=== PATIENT | female | born 1950 | race Two or more races ===

== ENCOUNTER 2016-12-15 21:05 | Emergency (ER) | payer OTHER ==
[2016-12-15 21:19] VITALS: BP 141/92; PULSE 71; TEMP 97.7; BMI 27.6
--- NOTE | 2016-12-15 22:01 | PDOC ---
History of Present Illness <Heidi Page - Last Filed: 12/16/16 02:26> - General History Source: Patient Exam Limitations: No Limitations - History of Present Illness Travel History: No Initial Comments: 12/15/16 21:59 66-year-old female with a history of hypertension, NIDDM presents to the emergency department complaining of right-sided flank pain since this am. Pain is described as 5/10 dull nonradiating intermittent discomfort. The pain is exacerbated on touch and alleviated at rest. Patient denies fever, chills, nausea/vomiting, dizziness, lightheadedness, neck pains, chest pain, shortness of breath, abdominal pains, urinary symptoms: Frequency/urgency/hesitancy, hematuria. Timing/Duration: reports: intermittent Quality: reports: mild Abdominal Pain Onset Location: reports: flank (right) Pain Radiation: reports: no radiation <Chiara Yancey - Last Filed: 12/16/16 02:42> - General Chief Complaint: Pain Stated Complaint: RIGHT LOWER QUADRANT PAIN Time Seen by Provider: 12/15/16 21:34 Past History <Heidi Page - Last Filed: 12/16/16 02:26> - Past Medical History Diabetes: Yes HTN: Yes - Psycho/Social/Smoking Cessation Hx Suicidal Ideation: No Smoking History: Never smoked Information on smoking cessation initiated: No Hx Alcohol Use: No Drug/Substance Use Hx: No Substance Use Type: None <Chiara Yancey - Last Filed: 12/16/16 02:42> - Past Medical History Allergies/Adverse Reactions: Allergies Allergy/AdvReac Type Severity Reaction Status Date / Time No Known Allergies Allergy Verified 12/15/16 21:16 Home Medications: Ambulatory Orders Glipizide 10 mg PO DAILY 12/15/16 Lisinopril 5 mg PO DAILY 12/15/16 Sitagliptin Phosphate [Januvia] 100 mg PO DAILY 12/15/16 Review of Systems - Review of Systems Able to Perform ROS?: Yes Comments:: 12/15/16 22:00 CONSTITUTIONAL: Absent: fever, chills, diaphoresis, generalized weakness, malaise, loss of appetite HEENT: Absent: rhinorrhea, nasal congestion, throat pain, throat swelling, difficulty swallowing, mouth swelling, ear pain, eye pain, visual Changes CARDIOVASCULAR: Absent: chest pain, loss of consciousness, palpitations, irregular heart rate, peripheral edema RESPIRATORY: Absent: cough, shortness of breath, dyspnea with exertion, orthopnea, wheezing, stridor, hemoptysis GASTROINTESTINAL: Absent: abdominal pain, abdominal distension, nausea, vomiting, diarrhea, constipation, melena, hematochezia GENITOURINARY: +flank pain Absent: dysuria, frequency, urgency, hesitancy, hematuria, genital pain MUSCULOSKELETAL: Absent: myalgia, arthralgia, joint swelling SKIN: Absent: rash, itching, pallor HEMATOLOGIC/IMMUNOLOGIC: Absent: easy bleeding, easy bruising, lymphadenopathy, frequent infections ENDOCRINE: Absent: unexplained weight gain, unexplained weight loss, heat intolerance, cold intolerance NEUROLOGIC: Absent: headache, focal weakness or paresthesias, dizziness, unsteady gait, seizure, mental status changes, bladder or bowel incontinence PSYCHIATRIC: Absent: anxiety, depression, suicidal or homicidal ideation, hallucinations. Is the patient limited Finnish proficient: No <Chiara Yancey - Last Filed: 12/16/16 02:42> *Physical Exam - Vital Signs Last Vital Signs Temp Pulse Resp BP Pulse Ox 97.7 F 71 19 141/92 100 12/15/16 21:17 12/15/16 21:17 12/15/16 21:17 12/15/16 21:17 12/15/16 21:17 <Heidi Page - Last Filed: 12/16/16 02:26> - Vital Signs Last Vital Signs Temp Pulse Resp BP Pulse Ox 97.7 F 71 19 141/92 100 12/15/16 21:17 12/15/16 21:17 12/15/16 21:17 12/15/16 21:17 12/15/16 21:17 - Physical Exam Comments: 12/15/16 22:00 GENERAL: Well developed, well nourished. Awake and alert. No acute distress. HEENT: Normocephalic, atraumatic. PERRLA, EOMI. No conjunctival pallor. Sclera are non- icteric. Moist mucous membranes. Oropharynx is clear. NECK: Supple. Full ROM. No JVD. Carotid pulses 2+ and symmetric, without bruits. No thyromegaly. No lymphadenopathy. CARDIOVASCULAR: Regular rate and rhythm. No murmurs, rubs, or gallops. Distal pulses are 2+ and symmetric. PULMONARY: No evidence of respiratory distress. Lungs clear to auscultation bilaterally. No wheezing, rales or rhonchi. ABDOMINAL: Right CVAT Soft. Non-tender. Non-distended. No rebound or guarding. No organomegaly. Normoactive bowel sounds. MUSCULOSKELETAL Normal range of motion at all joints. No bony deformities or tenderness. EXTREMITIES: No cyanosis. No clubbing. No edema. No calf tenderness. SKIN: Warm and dry. Normal capillary refill. No rashes. No jaundice. NEUROLOGICAL: Alert, awake, appropriate. Cranial nerves 2-12 intact. No deficits to light touch and temperature in face, upper extremities and lower extremities. No motor deficits in the in face, upper extremities and lower extremities. Normoreflexic in the upper and lower extremities. Normal speech. Toes are down- going bilaterally. Gait is normal without ataxia. PSYCHIATRIC: Cooperative. Good eye contact. Appropriate mood and affect. <Chiara Yancey - Last Filed: 12/16/16 02:42> ED Treatment Course - LABORATORY CBC & Chemistry Diagram: 12/15/16 22:10 12/15/16 22:10 - ADDITIONAL ORDERS Additional order review: Laboratory Results 12/15/16 12/15/16 22:10 22:10 Sodium 142 Potassium 4.0 Chloride 109 H Carbon Dioxide 25 Anion Gap 8 BUN 12 Creatinine 0.9 Creat Clearance w eGFR > 60 Random Glucose 174 H Calcium 9.9 Total Bilirubin 0.3 AST 17 ALT 29 Alkaline Phosphatase 71 Total Protein 6.7 Albumin 3.6 Urine Color Yellow Urine Appearance Clear Urine pH 5.0 Urine Protein Negative Urine Glucose (UA) Negative Urine Ketones 1+ H Urine Blood Negative Urine Nitrite Negative Urine Bilirubin Negative Urine Urobilinogen Negative Ur Leukocyte Esterase 1+ H Urine RBC 1 Urine WBC 3 Ur Epithelial Cells Rare Urine Mucus Rare 12/15/16 22:10 RBC 4.55 MCV 85.8 MCHC 33.3 RDW 13.6 MPV 8.8 Neutrophils % 60.0 Lymphocytes % 29.5 Monocytes % 7.8 Eosinophils % 2.2 Basophils % 0.5 - Medications Given in the ED: ED Medications Discontinued Medications Generic Name Dose Route Start Last Admin Trade Name Freq PRN Reason Stop Dose Admin Sodium Chloride 1,000 mls @ 1,000 mls/hr 12/15/16 22:05 12/15/16 22:29 Normal Saline - IV 12/15/16 23:04 1,000 mls/hr ASDIR STA Administration Ketorolac Tromethamine 30 mg 12/16/16 02:02 12/16/16 02:21 Toradol Injection - IM 12/16/16 02:03 30 mg ONCE ONE Administration <Heidi Page - Last Filed: 12/16/16 02:26> - LABORATORY CBC & Chemistry Diagram: 12/15/16 22:10 12/15/16 22:10 <Chiara Yancey - Last Filed: 12/16/16 02:42> Progress Note - Progress Note Progress Note: FINDINGS: Lung bases are clear. The visualized cardiac chambers are normal size and configuration. Status post cholecystectomy with minimal biliary duct dilation. Normal unenhanced pancreas, spleen, adrenal glands and kidneys. The stomach and abdominal small and large bowel are normal. There is no aortic aneurysm. There is no significant retroperitoneal lymphadenopathy. The pelvic small and large bowel are normal. The appendix is normal. Status post hysterectomy. Urinary bladder is unremarkable. There is no pelvic free fluid. No discrete pelvic lymphadenopathy is identified. Multiple bilateral gluteal densities could represent injection granulomas and/or silicone injections IMPRESSION: No localizing signs for acute pathology. <Chiara Yancey - Last Filed: 12/16/16 02:42> Medical Decision Making - Medical Decision Making 12/16/16 02:26 Patient Name: Starr Ho THIS IS A PRELIMINARYREPORT FROM [facility] [employer] [facility] EXAM: CT abdomen and pelvis without contrast IMAGES: [id number] INDICATION: Right flank pain DATE OF SERVICE: 2016-12-16 01:23:30.0 COMPARISON: none FINDINGS: Lung bases are clear. The visualized cardiac chambers are normal size and configuration. Status post cholecystectomy with minimal biliary duct dilation. Normal unenhanced pancreas, spleen, adrenal glands and kidneys. The stomach and abdominal small and large bowel are normal. There is no aortic aneurysm. There is no significant retroperitoneal lymphadenopathy. The pelvic small and large bowel are normal. The appendix is normal. Status post hysterectomy. Urinary bladder is unremarkable. There is no pelvic free fluid. No discrete pelvic lymphadenopathy is identified. Multiple bilateral gluteal densities could represent injection granulomas and/or silicone injections IMPRESSION: No localizing signs for acute pathology. THIS DOCUMENT HAS BEEN ELECTRONICALLY SIGNED <Heidi Page - Last Filed: 12/16/16 02:26> *DC/Admit/Observation/Transfer <Heidi Page - Last Filed: 12/16/16 02:26> - Discharge Dispostion Admit: No <Chiara Yancey - Last Filed: 12/16/16 02:42> Diagnosis at time of Disposition: UTI (urinary tract infection) Qualifiers: Urinary tract infection type: acute cystitis Hematuria presence: without hematuria Qualified Code(s): N30.00 - Acute cystitis without hematuria - Discharge Dispostion Disposition: HOME Condition at time of disposition: Stable - Referrals Referrals: STAFF,NOT ON [Primary Care Provider] - Rolf Cobb MD [Staff Physician] - - Patient Instructions Printed Discharge Instructions: Urinary Tract Infection Additional Instructions: Increase fluids Follow up with the urologist Return to the Er for severe/persistent/worsening symptoms Urologist: DR. Cobb
[2016-12-15] MEDS ORDERED: SODIUM CHLORIDE 1,000 ML IV STA (22:05)
[2016-12-15 22:26] LABS: BASOPHIL 0.5 % (0-2.0); EOSINOPHIL 2.2 % (0-4.5); MCH 28.6 pg (25.7-33.7); MCHC 33.3 g/dl (32.0-36.0); MEAN CELL VOLUME 85.8 fl (80-96); MEAN PLT VOLUME 8.8 fl (7.5-11.1); PLATELET COUNT 180 K/MM3 (134-434); RDW 13.6 % (11.6-15.6); WHITE BLOOD COUNT 6.5 K/mm3 (4.0-10.0)
[2016-12-15 22:28] LABS: URINE APPEARANCE CLEAR; URINE BILIRUBIN NEGATIVE (NEGATIVE); URINE BLOOD NEGATIVE (NEGATIVE); URINE COLOR YELLOW; URINE GLUCOSE (UA) NEGATIVE (NEGATIVE); URINE KETONE 1+ (NEGATIVE); URINE NITRITE NEGATIVE (NEGATIVE); URINE PROTEIN NEGATIVE (NEGATIVE); URINE UROBILINOGEN NEGATIVE mg/dL (0.2-1.0)
[2016-12-15 22:43] LABS: URINE LEUK ESTERASE 1+ (NEGATIVE)
[2016-12-15 23:00] LABS: URINE MUCUS RARE; URINE RBC 1 /hpf (0-3); URINE WBC 3 /hpf (3-5)
[2016-12-15 23:05] LABS: ALBUMIN 3.6 g/dl (3.4-5.0); ANION GAP 8 (8-16); CALCIUM 9.9 mg/dL (8.5-10.1); CO2 25 mmol/L (21-32); CREATININE 0.9 mg/dL (0.55-1.02); GLUCOSE,RANDOM 174 mg/dL (74-106); SGOT/AST 17 U/L (15-37); SGPT/ALT 29 U/L (12-78)
[2016-12-15 23:07] LABS: ALK PHOS 71 U/L (45-117); BILIRUBIN,TOTAL 0.3 mg/dL (0.2-1.0); TOT PROT 6.7 g/dl (6.4-8.2)
[2016-12-16] MEDS ORDERED: KETOROLAC TROMETHAMINE 30 MG/1 ML VIAL IM ONE (02:02)
[2016-12-16] MEDS ORDERED: KETOROLAC TROMETHAMINE 30 MG/1 ML VIAL ONE (02:17)
[2016-12-16] MEDS ORDERED: CEPHALEXIN MONOHYDRATE 500 MG CAPSULE (UD) PO ONE (02:47)
[2016-12-16] MEDS ORDERED: CEPHALEXIN MONOHYDRATE 250 MG CAPSULE (FP) ONE (03:19)
== END 2016-12-16 03:34 | disposition home or self-care (01) ==
LOC: JER 21:05
PROC: 3E0337Z Introduction of Electrolytic and Water Balance Substance into Peripheral Vein, Percutaneous Approach (ICD-10-PCS; principal; 2016-12-15)
PROC: 3E0233Z Introduction of Anti-inflammatory into Muscle, Percutaneous Approach (ICD-10-PCS; 2016-12-15)
DX: N30.00 Acute cystitis without hematuria (principal); I10 Essential (primary) hypertension; E11.9 Type 2 diabetes mellitus without complications; Z79.84 Long term (current) use of oral hypoglycemic drugs
CPT/HCPCS: 36415; 74176; 80053; 81003; 81015; 85025; 96360; 96372; 99282-25